=== PATIENT | female | born 1950 | race Caucasian/White ===

== ENCOUNTER → 2016-03-28 16:49 | Outpatient (CLI) | payer MEDICARE, OTHER ==
[2014-07-03 06:29] VITALS: BMI 31.3
[~2016-03-28 16:49] MED LIST: BAYER CHEWABLE81 MG PO; HYDROCODONE-APA1 TAB PO; ISOSORBIDE MONO60 M1 PO; LEVOXYL100 MCG PO; LIVALO4 MG PO; PRILOSEC20 MG PO; TIROSINT88 MCG PO; TOPROL XL25 MG PO; VISTARIL25 MG PO
== END | disposition home or self-care (01) ==
LOC: D.MAMMO 10:00
DX: Z85.3 Personal history of malignant neoplasm of breast (principal)

== ENCOUNTER → 2017-06-26 22:40 | Outpatient (CLI) | payer MEDICARE, OTHER ==
[2014-07-03 06:29] VITALS: BMI 31.3
== END | disposition home or self-care (01) ==
LOC: D.MAMMO 13:30
DX: D05.12 Intraductal carcinoma in situ of left breast (principal)

== ENCOUNTER 2018-08-17 09:00 | Outpatient (CLI) | payer MEDICARE, OTHER ==
[2014-07-03 06:29] VITALS: BMI 31.3
== END 2018-08-17 10:00 | disposition home or self-care (01) ==
LOC: D.MAMMO 09:00
PROVIDERS: ATTEND Internal Medicine Hematology & Oncology
DX: D05.12 Intraductal carcinoma in situ of left breast (principal)

== ENCOUNTER → 2019-09-17 22:13 | Outpatient (CLI) | payer MEDICARE, OTHER ==
[2014-07-03 06:29] VITALS: BMI 31.3
== END | disposition home or self-care (01) ==
LOC: D.MAMMO 09-03 11:00
PROVIDERS: ATTEND Internal Medicine Hematology & Oncology
DX: D05.12 Intraductal carcinoma in situ of left breast (principal)